=== PATIENT | male | born 1960 | race Caucasian/White ===

== ENCOUNTER 2019-11-03 15:57 | Inpatient (IN) | payer OTHER ==
[~2019-11-03] VITALS: Ht 170.2 cm; Wt 114.2 kg
[2019-11-03] VITALS (10 sets, daily range): BP systolic 131–221; BP diastolic 75–138
[2019-11-03 16:22] LABS: ABG HCO3 14.9 MEQ/L (22.0-26.0); ABG O2 SATURATION 93.2 % (95.0-99.0); ABG PARTIAL PRESSURE CO2 34.2 mmHg (35.0-45.0); ABG PARTIAL PRESSURE O2 74.9 mmHg (75.0-100.0); ABG pH (ARTERIAL) 7.258 UNITS (7.350-7.450)
[2019-11-03] MEDS ORDERED: ISOVUE-370 76% 100ML VIAL As Ordered ONE (16:23)
[2019-11-03 16:28] LABS: HEMATOCRIT 48.2 % (42.0-52.0); HEMOGLOBIN 16.1 g/dl (13.5-17.5); MEAN CORPUSCULAR HEMOGLOBIN 31.9 pg (27.0-33.0); MEAN CORPUSCULAR HGB CONC 33.4 g/dl (32.0-36.5); MEAN CORPUSCULAR VOLUME 95.6 fl (80.0-96.0); PLATELET COUNT, AUTOMATED 242 10^3/uL (150-450); RED BLOOD COUNT 5.04 10^6/uL (4.30-6.10); WHITE BLOOD COUNT 14.3 10^3/uL (4.0-10.0)
--- NOTE | 2019-11-03 16:32 | REPVR ---
PROCEDURE INFORMATION: Exam: XR Chest, 1 View Exam date and time: 11/03/2019 4:02 PM Age: 59 years old Clinical indication: Shortness of breath; Additional info: Chest pain, distress TECHNIQUE: Imaging protocol: XR of the chest Views: 1 view. COMPARISON: No relevant prior studies available. FINDINGS: Tubes, catheters and devices: External monitoring devices present. Lungs: Unremarkable. No consolidation. Pleural space: Unremarkable. No pleural effusion. No pneumothorax. Heart/Mediastinum: The cardiac silhouette is enlarged Bones/joints: Unremarkable. Other findings: The patient is rotated to the right. IMPRESSION: Moderate enlargement of cardiac silhouette Electronically signed by: Swapna Blair On 11/03/2019 16:32:34 PM
[2019-11-03 16:38] LABS: INR 1.21; PROTHROMBIN TIME 15.6 SECONDS (11.8-14.0)
[2019-11-03 16:39] LABS: PARTIAL THROMBOPLASTIN TIME 26.4 SECONDS (25.0-38.4)
--- NOTE | 2019-11-03 17:14 | REPVR ---
PROCEDURE INFORMATION: Exam: CT Angiography Chest With Contrast Exam date and time: 11/03/2019 4:16 PM Age: 59 years old Clinical indication: Shortness of breath; Additional info: Severe sudden SOB TECHNIQUE: Imaging protocol: Computed tomographic angiography of the chest with intravenous contrast. 3D rendering (Not supervised by radiologist): MIP and/or 3D reconstructed images were created by the technologist. Radiation optimization: All CT scans at this facility use at least one of these dose optimization techniques: automated exposure control; mA and/or kV adjustment per patient size (includes targeted exams where dose is matched to clinical indication); or iterative reconstruction. Contrast material: ISOVUE 370; Contrast volume: 75 ml; Contrast route: INTRAVENOUS (IV); COMPARISON: CR PORTABLE CHEST X-RAY 11/03/2019 4:12 PM FINDINGS: Pulmonary arteries: Saddle embolus noted within the left and right pulmonary artery. Nonocclusive thrombus noted in a 2nd and 3rd generation branch of the left pulmonary artery serving the left upper lobe. Clot noted within the left pulmonary artery extending into 1st, 2nd 3rd and 4th generation branches of the left pulmonary artery serving the left lower lobe and to a lesser extent left upper lobe. Large clot noted within the main right pulmonary artery extending into 1st 2nd and 3rd generation branches serving the upper lobe and lower lobe. Aorta: Unremarkable. No aortic aneurysm. No aortic dissection. Veins: RV LV ratio = 1.4 there is reflux of contrast into the intrahepatic IVC. Lungs: Unremarkable. No consolidation. No masses. Pleural space: Unremarkable. No pneumothorax. No pleural effusion. Heart: Moderate cardiomegaly.. No pericardial effusion. Lymph nodes: Unremarkable. No enlarged lymph nodes. Bones/joints: Unremarkable. No acute fracture. Soft tissues: Unremarkable. IMPRESSION: 1. Acute pulmonary embolism. There is large clot burden noted bilaterally.THIS REPORT CONTAINS FINDINGS THAT MAY BE CRITICAL TO PATIENT CARE. The findings were verbally communicated via telephone conference with RICKEY MCGARRY at 5:13 PM EDT on 11/03/2019. The findings were acknowledged and understood. 2. Evidence of right ventricular dysfunction. 3. Moderate cardiomegaly. Electronically signed by: Swapna Blair On 11/03/2019 17:14:14 PM
[2019-11-03] MEDS ORDERED: HEPARIN DRIP 25,000 UNITS in IV 1 EA IV SCH (17:24)
[2019-11-03 17:27] LABS: EOSINOPHILS 1 % (0-3); LYMPHOCYTES 28 % (16-44); METAMYELOCYTES 1 % (0-0); MONOCYTES 6 % (0-5); NEUTROPHILS 63 % (28-66); PLATELET ESTIMATE NORMAL (NORMAL)
[2019-11-03] MEDS ORDERED: HEPARIN SOD (PORCINE) 5000UNITS/ML 1ML VIAL/SYRINGE IV ONE (17:30)
--- NOTE | 2019-11-03 17:39 | REPVR ---
PROCEDURE INFORMATION: Exam: US Duplex Lower Extremity Veins, Bilateral Exam date and time: 11/03/2019 5:26 PM Age: 59 years old Clinical indication: Condition or disease; Other: Pe TECHNIQUE: Imaging protocol: Real-time duplex ultrasound of the extremities with 2-D jain scale, color Doppler flow and spectral waveform analysis with image documentation. Complete exam focused on the bilateral lower extremity veins. COMPARISON: No relevant prior studies available. FINDINGS: Right deep veins: Nonocclusive thrombus noted within the distal right popliteal vein which is noncompressible. There is normal compression of the right common femoral vein, femoro saphenous junction and femoral vein. Blood flow demonstrated on color Doppler examination. Right superficial veins: Saphenofemoral junction is patent without thrombus. Left deep veins: Unremarkable. The common femoral, femoral, proximal profunda femoral and popliteal veins are patent without thrombus. Normal Doppler waveforms. Normal compressibility and/or augmentation response. Left superficial veins: Saphenofemoral junction is patent without thrombus. Soft tissues: Unremarkable. IMPRESSION: 1. Deep vein thrombosis within the right popliteal vein. 2. Normal venous Doppler of the left leg. No left leg deep vein thrombosis Electronically signed by: Swapna Blair On 11/03/2019 17:39:33 PM
[2019-11-03 18:17] LABS: ALT/SGPT 40 IU/L (0-32)
[2019-11-03 18:18] LABS: BILIRUBIN,TOTAL 0.9 MG/DL (0.2-1.0); CK-MB VALUE MASS 1.1 NG/ML (<3.6); CPK CREATINE PHOSPHOKINASE 90 U/L (39-308); MB/CK RELATIVE INDEX 1.22 (< OR =4); TOTAL PROTEIN 7.3 GM/DL (6.4-8.2)
[2019-11-03 18:19] LABS: ACETAMINOPHEN LEVEL < 2.0 UG/ML (10.0-30.0); ALBUMIN 3.2 GM/DL (3.2-5.2); LIPASE 53 U/L (73-393); MAGNESIUM LEVEL 2.4 MG/DL (1.8-2.4); NT-PRO BNP 1613 PG/ML (<125); SALICYLATE LEVEL < 1.7 MG/DL (5.0-30.0); TROPONIN I 0.19 NG/ML (< 0.10)
[2019-11-03] MEDS ORDERED: MAALOX 30 ML SUSP *UDC PO PRN (18:30)
[2019-11-03] MEDS ORDERED: MOM 30ML SUSPENSION UDC PO PRN (18:30)
[2019-11-03] MEDS: HEPARIN DRIP 25,000 UNITS in IV 1 EA IV SCH (18:33)
[2019-11-03 18:37] LABS: BILIRUBIN,DIRECT 0.5 MG/DL (0.0-0.2)
[2019-11-03 18:42] LABS: ABG BASE EXCESS -1.4 (-2.0-2.0); ABG HCO3 22.4 MEQ/L (22.0-26.0); ABG O2 SATURATION 96.1 % (95.0-99.0); ABG PARTIAL PRESSURE CO2 35.5 mmHg (35.0-45.0); ABG PARTIAL PRESSURE O2 76.5 mmHg (75.0-100.0); ABG STANDARD HCO3 23.3 MEQ/L (22.0-26.0); ABG TOTAL CO2 23.5 MEQ/L (22.0-29.0); ABG pH (ARTERIAL) 7.418 UNITS (7.350-7.450)
--- NOTE | 2019-11-03 19:04 | HPEPDOC ---
General Date of Admission Nov 03, 2019 at 18:18 Date of Service: Nov 03, 2019 Chief Complaint The patient is a 59-year-old male admitted with a reason for visit of Dvt, Pulmonary Embolism. Source: Patient History of Present Illness 59 year old male with no past medical history presented to ED by ambulance for sudden onset severe shortness of breath at 3 [address] when he was getting ready to go out. On arrival to the ED he was hypoxic to high 80s with 10 l non rebreather, pale and diaphoretic, he was tachycardic to 125. He denied any chest pain, denied any lightheadedness or dizziness. CXR showed possible widened mediastinum so he had CT angio which showed large saddle embolus and also emboli in other pulmonary artery brancehed. He also complained of his right leg swelling for 2 weeks without any pain or redness.. Doppler showed right popliteal DVT. His VVG showed metabolic acidosis. and his sugars were elevated at 249. He was admitted for DVT and Pulmonary embolism. Home Medications No Active Prescriptions or Reported Meds Allergies Coded Allergies: No Known Allergies (Unverified , 11/03/19) Past Medical History Medical History chronic low back pain Surgical History none Family History Significant Family History: Diabetes (mother), Heart disease (mother), Other (luekemia paternal uncle) Social History * Smoker: Denies Alcohol: occationally Drugs: denies A-FIB/CHADSVASC A-FIB History Current/History of A-Fib/PAF?: No Review of Systems Constitutional: Denies: Chills, Fever, Night Sweats Eyes: Denies: Pain, Vision change ENT: Denies: Head Aches, Ear Pain, Dysphagia Skin: Denies: Rash, Lesions, Breakdown Pulmonary: Reports: Dyspnea Cardiovascular: Denies: Chest Pain, Palpitations, Orthopnea, Paroxysmal Noc. Dyspnea, Lt Headedness Gastrointestinal: Denies: Nausea, Vomiting, Abdominal Pain, Diarrhea Genitourinary: Denies: Dysuria, Frequency, Incontinence, Retention Hematologic: Denies: Bruising, Bleeding Excessively Musculoskeletal: Reports: Back Pain Physical Examination General Exam: Positive: Alert, Cooperative, No Acute Distress Eye Exam: Positive: PERRLA, Conjunctiva & lids normal, EOMI; Negative: Sclera icteric ENT Exam: Positive: Atraumatic, Mucous membr. moist/pink, Pharynx Normal Neck Exam: Positive: Supple; Negative: JVD, thyromegaly Chest Exam: Positive: Normal air movement, Wheezing, Other (basal crackles) Heart Exam: Positive: Tachycardic, Regular Rhythm, Normal S1, Normal S2; Negative: Murmurs, Rubs Telemetry: Positive: Sinus, Tachycardia Abdomen Exam: Positive: Normal bowel sounds, Soft, Other (obese); Negative: Tenderness Extremity Exam: Positive: Edema (right leg) Skin Exam: Positive: Nl turgor and temperature; Negative: Breakdown, Lesion Neuro Exam: Positive: Normal Speech, Strength at 5/5 X4 ext, Normal Tone, Cranial Nerves 3-12 NL, Reflexes 2+ Vital Signs Vital Signs Date Time Temp Pulse Resp B/P (MAP) Pulse Ox O2 Delivery O2 Flow Rate FiO2 11/03/19 16:42 Non-Rebreather 15.0 11/03/19 16:15 97.5 113 25 134/100 (111) 95 100 Laboratory Data Labs 24H Laboratory Tests 2 11/03/19 16:06: Neutrophils (%) (Auto) , Nucleated Red Blood Cells % (auto) 0.0, Neutrophils 63, Band Neutrophils 1, Lymphocytes (Manual) 28, Monocytes (Manual) 6H, Eosinophils (Manual) 1, Metamyelocytes 1H, Platelet Estimate NORMAL, Prothrombin Time 15.6H, Prothromb Time International Ratio 1.21, Activated Partial Thromboplast Time 26.4, POC Troponin I (Misc) 0.03 11/03/19 16:10: Blood Gas Bicarbonate Standard 16.0L, Arterial Blood pH 7.258L, Arterial Blood Partial Pressure CO2 34.2L, Arterial Blood Partial Pressure O2 74.9L, Arterial Blood Total CO2 16.0L, Arterial Blood HCO3 14.9L, Arterial Blood Base Excess - 11.0L, Arterial Blood Oxygen Saturation 93.2L 11/03/19 16:20: POC Glucose (Misc Panel) 249H, POC Sodium (Misc Panel) 139, POC Potassium (Misc Panel) 3.6, POC Chloride (Misc Panel) 103, POC Total CO2 (Misc Panel) 20.0L, POC Blood Urea Nitrogen (Misc Panel 6L, POC Ionized Calcium (Misc Panel) 4.2L, POC Creatinine (Misc Panel) 1.2, POC Hematocrit (Misc Panel) 52.0H 11/03/19 17:17: Magnesium Level 2.4, Total Bilirubin 0.9, Direct Bilirubin 0.5H, Aspartate Amino Transf (AST/SGOT) 31, Alanine Aminotransferase (ALT/SGPT) 40H, Alkaline Phosphatase 133H, Total Creatine Kinase 90, Creatine Kinase MB 1.1, Creatine Kinase MB Relative Index 1.22, Troponin I 0.19H, QE-Ouy-T-Type Natriuretic Peptide 1613H, Total Protein 7.3, Albumin 3.2, Albumin/Globulin Ratio 0.8, Lipase 53L, Thyroid Stimulating Hormone (TSH) 2.710, Salicylates Level < 1.7L, Acetaminophen Level < 2.0L 11/03/19 18:16: 11/03/19 18:35: Blood Gas Bicarbonate Standard 23.3, Arterial Blood pH 7.418, Arterial Blood Partial Pressure CO2 35.5, Arterial Blood Partial Pressure O2 76.5, Arterial B lood Total CO2 23.5, Arterial Blood HCO3 22.4, Arterial Blood Base Excess -1.4, Arterial Blood Oxygen Saturation 96.1 CBC/BMP Laboratory Tests 11/03/19 16:06 Assessment/Plan 59 year old male with no past medical history presented to ED by ambulance for sudden onset severe shortness of breath at 3 [address] when he was getting ready to go out. On arrival to the ED he was hypoxic to high 80s with 10 l non rebreather, pale and diaphoretic, he was tachycardic to 125. He denied any chest pain, denied any lightheadedness or dizziness. CXR showed possible widened mediastinum so he had CT angio which showed large saddle embolus and also emboli in other pulmonary artery brancehed. He also complained of his right leg swelling for 2 weeks without any pain or redness.. Doppler showed right popliteal DVT. His VVG showed metabolic acidosis. and his sugars were elevated at 249. He was admitted for DVT and Pulmonary embolism. Massive pulmonary embolism will stable vitals. will start on heparin inf hypercoagulable work up sent echo. Acute respiratory failure with hypoxia due to massive PE Right leg DVT unprovoked. Metabolic acidosis on arrival which has now corrected possibly due to hypoxia Possible diabetes will get A1c Lispro as per ss. Obesity complicating care. Plan / VTE VTE Prophylaxis Ordered?: Yes HARINDER MEADE MD Nov 03, 2019 19:04
[2019-11-03] MEDS ORDERED: DEXTROSE 50% 50 ML SYRINGE IV PRN (19:15)
[2019-11-03] MEDS ORDERED: GLUCOSE 4GM CHEW TABLET PO PRN (19:15)
[2019-11-03] MEDS ORDERED: GLUCAGON INJ 1MG VIAL SC PRN (19:15)
[2019-11-03] MEDS ORDERED: hydrALAZINE 20MG/ML 1ML VIAL (J0360 PER 20MG) IV STA (20:13)
[2019-11-03] MEDS: DOCUSATE SODIUM 100 MG CAP PO SCH (20:35)
[2019-11-03] MEDS ORDERED: HumaLOG INSULIN (NovoLOG) PER UNIT SC SCH (21:00)
[2019-11-04] VITALS (10 sets, daily range): BP systolic 142–200; BP diastolic 77–102
[2019-11-04 06:05] LABS: BASO # 0.1 10^3/uL (0.0-0.2); BASO % 0.4 % (0.0-1.0); EOS # 0.1 10^3/uL (0.0-0.5); EOS % 0.7 % (0.0-3.0); HEMATOCRIT 44.2 % (42.0-52.0); HEMOGLOBIN 15.2 g/dl (13.5-17.5); LYMPH # 2.4 10^3/uL (1.5-5.0); LYMPH % 19.1 % (24.0-44.0); MEAN CORPUSCULAR HEMOGLOBIN 32.3 pg (27.0-33.0); MEAN CORPUSCULAR HGB CONC 34.4 g/dl (32.0-36.5); MEAN CORPUSCULAR VOLUME 93.8 fl (80.0-96.0); MONO # 1.1 10^3/uL (0.0-0.8); MONO % 8.7 % (0.0-5.0); NEUTROPHILS # 8.7 10^3/uL (1.5-8.5); NEUTROPHILS % 70.5 % (36.0-66.0); PLATELET COUNT, AUTOMATED 209 10^3/uL (150-450); RED BLOOD COUNT 4.71 10^6/uL (4.30-6.10); WHITE BLOOD COUNT 12.3 10^3/uL (4.0-10.0)
[2019-11-04 06:34] LABS: BLOOD UREA NITROGEN 10 MG/DL (7-18); CALCIUM LEVEL 8.9 MG/DL (8.5-10.1); CARBON DIOXIDE LEVEL 24 MEQ/L (21-32); CHLORIDE LEVEL 109 MEQ/L (98-107); GLOMERULAR FILTRATION RATE > 60.0 (>56); GLUCOSE, FASTING 129 MG/DL (70-100); POTASSIUM SERUM 4.2 MEQ/L (3.5-5.1); SODIUM LEVEL 138 MEQ/L (136-145)
[2019-11-04] MEDS: HEPARIN SOD (PORCINE) 5000UNITS/ML 1ML VIAL/SYRINGE IV PRN ×2 (06:37→18:50)
[2019-11-04] MEDS ORDERED: HumaLOG INSULIN (NovoLOG) PER UNIT SC SCH (07:30)
[2019-11-04] MEDS: DOCUSATE SODIUM 100 MG CAP PO SCH ×3 (08:13→20:10)
[2019-11-04] MEDS: HEPARIN DRIP 25,000 UNITS in IV 1 EA IV SCH ×2 (09:00→21:35)
--- NOTE | 2019-11-04 09:25 | IPNPDOC ---
Text Note Date of Service The patient was seen on 11/04/19. NOTE Subjective: No issues overnight . Denies any SOB, no chest pain, has some cough no phlegm production. On nasal canula 4 liters. Physical Exam: Vitals : as below. General Exam: Positive: Alert, Cooperative, No Acute Distress Eye Exam: Positive: PERRLA, Conjunctiva & lids normal, EOMI; Negative: Sclera icteric ENT Exam: Positive: Atraumatic, Mucous membr. moist/pink, Pharynx Normal Neck Exam: Positive: Supple; Negative: JVD, thyromegaly Chest Exam: Positive: Normal air movement, Wheezing, Other (basal crackles) Heart Exam: Positive: Tachycardic, Regular Rhythm, Normal S1, Normal S2; Negative: Murmurs, Rubs Telemetry: Positive: Sinus, Tachycardia Abdomen Exam: Positive: Normal bowel sounds, Soft, Other (obese); Negative: Tenderness Extremity Exam: Positive: Edema (right leg) Skin Exam: Positive: Nl turgor and temperature; Negative: Breakdown, Lesion Neuro Exam: Positive: Normal Speech, Strength at 5/5 X4 ext, Normal Tone, Cranial Nerves 3-12 NL, Reflexes 2+ Labs and Radiology: reviewed Assessment and plan: 59 year old male with no past medical history presented to ED by ambulance for sudden onset severe shortness of breath at 3 [address] when he was getting ready to go out. On arrival to the ED he was hypoxic to high 80s with 10 l non rebreather, pale and diaphoretic, he was tachycardic to 125. He denied any chest pain, denied any lightheadedness or dizziness. CXR showed possible widened mediastinum so he had CT angio which showed large saddle embolus and also emboli in other pulmonary artery brancehed. He also complained of his right leg swelling for 2 weeks without any pain or redness.. Doppler showed right p opliteal DVT. His VVG showed metabolic acidosis. and his sugars were elevated at 249. He was admitted for DVT and Pulmonary embolism. Massive pulmonary embolism stable vitals. cont heparin inf hypercoagulable work up sent echo. Acute respiratory failure with hypoxia due to massive PE Right leg DVT unprovoked. Metabolic acidosis on arrival possibly due to hypoxia Prediabetes A1c 6.0 dc lispro Obesity complicating care. VS,Maria Fernanda, I+O VS, Fishbone, I+O Laboratory Tests 11/03/19 16:06 11/04/19 05:53 Vital Signs Date Time Temp Pulse Resp B/P (MAP) Pulse Ox O2 Delivery O2 Flow Rate FiO2 11/04/19 08:00 4.0 11/04/19 08:00 98.3 94 20 150/85 (106) 93 Nasal Cannula 11/04/19 04:00 31 I&O- Last 24 Hours up to 6 AM 11/04/19 05:59 Intake Total 260 ml Output Total 450 ml Balance -190 ml HARINDER MEADE MD Nov 04, 2019 09:25
[2019-11-04] MEDS: hydrALAZINE 20MG/ML 1ML VIAL (J0360 PER 20MG) IV PRN (20:11)
[2019-11-04] MEDS: NITROFURANTOIN (MACROBID) 100 MG CAP PO SCH (23:56)
[2019-11-05] VITALS: BP 156/85
[2019-11-05 04:00] VITALS: BP 147/83
[2019-11-05 07:27] LABS: BASO # 0.1 10^3/uL (0.0-0.2); BASO % 0.5 % (0.0-1.0); EOS # 0.2 10^3/uL (0.0-0.5); EOS % 2.3 % (0.0-3.0); HEMATOCRIT 43.7 % (42.0-52.0); HEMOGLOBIN 15.2 g/dl (13.5-17.5); LYMPH # 2.1 10^3/uL (1.5-5.0); LYMPH % 20.7 % (24.0-44.0); MEAN CORPUSCULAR HEMOGLOBIN 32.3 pg (27.0-33.0); MEAN CORPUSCULAR HGB CONC 34.8 g/dl (32.0-36.5); MONO # 0.9 10^3/uL (0.0-0.8); MONO % 8.9 % (0.0-5.0); NEUTROPHILS # 6.9 10^3/uL (1.5-8.5); NEUTROPHILS % 67.1 % (36.0-66.0); PLATELET COUNT, AUTOMATED 217 10^3/uL (150-450); WHITE BLOOD COUNT 10.3 10^3/uL (4.0-10.0)
[2019-11-05] MEDS: HEPARIN SOD (PORCINE) 5000UNITS/ML 1ML VIAL/SYRINGE IV PRN (07:56)
[2019-11-05 08:00] VITALS: BP 154/91
[2019-11-05] MEDS: SENNA 8.6 MG TAB (SENOKOT) PO SCH ×2 (08:01→20:36)
[2019-11-05] MEDS: DOCUSATE SODIUM 100 MG CAP PO SCH ×2 (08:01→20:36)
[2019-11-05] MEDS: NITROFURANTOIN (MACROBID) 100 MG CAP PO SCH ×2 (08:01→20:36)
[2019-11-05] MEDS: amLODIPine 10 MG TAB PO SCH (08:02)
[2019-11-05 08:04] LABS: BLOOD UREA NITROGEN 11 MG/DL (7-18); CALCIUM LEVEL 8.4 MG/DL (8.5-10.1); CARBON DIOXIDE LEVEL 23 MEQ/L (21-32); CHLORIDE LEVEL 110 MEQ/L (98-107); CREATININE FOR GFR 0.95 MG/DL (0.70-1.30); GLOMERULAR FILTRATION RATE > 60.0 (>56); GLUCOSE, FASTING 123 MG/DL (70-100); POTASSIUM SERUM 3.9 MEQ/L (3.5-5.1); SODIUM LEVEL 142 MEQ/L (136-145)
--- NOTE | 2019-11-05 09:08 | IPNPDOC ---
Text Note Date of Service The patient was seen on 11/05/19. NOTE Subjective: No issues overnight . Denies any SOB, no chest pain, has some cough no phlegm production. Off oxygen since yesterday. Physical Exam: Vitals : as below. General Exam: Positive: Alert, Cooperative, No Acute Distress Eye Exam: Positive: PERRLA, Conjunctiva & lids normal, EOMI; Negative: Sclera icteric ENT Exam: Positive: Atraumatic, Mucous membr. moist/pink, Pharynx Normal Neck Exam: Positive: Supple; Negative: JVD, thyromegaly Chest Exam: Positive: Normal air movement, Wheezing, Other (basal crackles) Heart Exam: Positive: Tachycardic, Regular Rhythm, Normal S1, Normal S2; Negative: Murmurs, Rubs Telemetry: Positive: Sinus, Tachycardia Abdomen Exam: Positive: Normal bowel sounds, Soft, Other (obese); Negative: Tenderness Extremity Exam: Positive: Edema (right leg) Skin Exam: Positive: Nl turgor and temperature; Negative: Breakdown, Lesion Neuro Exam: Positive: Normal Speech, Strength at 5/5 X4 ext, Normal Tone, Cranial Nerves 3-12 NL, Reflexes 2+ Labs and Radiology: reviewed Assessment and plan: 59 year old male with no past medical history presented to ED by ambulance for sudden onset severe shortness of breath at 3 [address] when he was getting ready to go out. On arrival to the ED he was hypoxic to high 80s with 10 l non rebreather, pale and diaphoretic, he was tachycardic to 125. He denied any chest pain, denied any lightheadedness or dizziness. CXR showed possible widened mediastinum so he had CT angio which showed large saddle embolus and also emboli in other pulmonary artery brancehed. He also complained of his right leg swelling for 2 weeks without any pain or redness.. Doppler showed right popliteal DVT. His VVG showed metabolic acidosis. and his sugars were elevated at 249. He was admitted for DVT and Pulmonary embolism. Massive pulmonary embolism stable vitals. cont heparin inf today. [place] start on lovenox tonight an coumadin. hypercoagulable work up sent echo done. Acute respiratory failure with hypoxia due to massive PE Right leg DVT unprovoked. Metabolic acidosis on arrival possibly due to hypoxia Prediabetes A1c 6.0 dc lispro Obesity complicating care. VS,Fishbone, I+O VS, Fishbone, I+O Laboratory Tests 11/05/19 07:17 Vital Signs Date Time Temp Pulse Resp B/P (MAP) Pulse Ox O2 Delivery O2 Flow Rate FiO2 11/05/19 08:02 83 154/91 11/05/19 08:00 97.4 20 94 Room Air 11/04/19 12:00 2.0 11/04/19 04:00 31 I&O- Last 24 Hours up to 6 AM 11/05/19 05:59 Intake Total 1638 ml Output Total 1375 ml Balance 263 ml HARINDER MEADE MD Nov 05, 2019 09:08
[2019-11-05] MEDS: HEPARIN DRIP 25,000 UNITS in IV 1 EA IV SCH ×2 (10:34→20:35)
[2019-11-05 11:10] VITALS: BP 160/90
[2019-11-05 16:00] VITALS: BP 138/90
[2019-11-05 20:00] VITALS: BP 148/90
[2019-11-05 20:21] LABS: INR 1.05; PROTHROMBIN TIME 13.9 SECONDS (11.8-14.0)
[2019-11-05 20:22] LABS: PARTIAL THROMBOPLASTIN TIME 68.4 SECONDS (25.0-38.4)
[2019-11-06] VITALS (7 sets, daily range): BP systolic 127–182; BP diastolic 70–96
[2019-11-06 06:47] LABS: BASO # 0.1 10^3/uL (0.0-0.2); BASO % 0.7 % (0.0-1.0); EOS # 0.4 10^3/uL (0.0-0.5); HEMATOCRIT 44.9 % (42.0-52.0); HEMOGLOBIN 15.3 g/dl (13.5-17.5); LYMPH # 2.2 10^3/uL (1.5-5.0); LYMPH % 23.7 % (24.0-44.0); MEAN CORPUSCULAR HEMOGLOBIN 32.2 pg (27.0-33.0); MEAN CORPUSCULAR HGB CONC 34.1 g/dl (32.0-36.5); MEAN CORPUSCULAR VOLUME 94.5 fl (80.0-96.0); MONO # 0.9 10^3/uL (0.0-0.8); MONO % 9.5 % (0.0-5.0); NEUTROPHILS # 5.6 10^3/uL (1.5-8.5); NEUTROPHILS % 61.2 % (36.0-66.0); PLATELET COUNT, AUTOMATED 216 10^3/uL (150-450); RED BLOOD COUNT 4.75 10^6/uL (4.30-6.10); WHITE BLOOD COUNT 9.2 10^3/uL (4.0-10.0)
[2019-11-06 07:03] LABS: BLOOD UREA NITROGEN 14 MG/DL (7-18); CALCIUM LEVEL 8.5 MG/DL (8.5-10.1); CARBON DIOXIDE LEVEL 23 MEQ/L (21-32); CHLORIDE LEVEL 110 MEQ/L (98-107); CREATININE FOR GFR 1.17 MG/DL (0.70-1.30); GLOMERULAR FILTRATION RATE > 60.0 (>56); GLUCOSE, FASTING 116 MG/DL (70-100); POTASSIUM SERUM 3.9 MEQ/L (3.5-5.1); SODIUM LEVEL 141 MEQ/L (136-145)
[2019-11-06] MEDS: SENNA 8.6 MG TAB (SENOKOT) PO SCH ×2 (07:30→20:15)
[2019-11-06] MEDS: DOCUSATE SODIUM 100 MG CAP PO SCH ×2 (07:30→20:15)
[2019-11-06] MEDS: amLODIPine 10 MG TAB PO SCH (08:35)
[2019-11-06] MEDS: NITROFURANTOIN (MACROBID) 100 MG CAP PO SCH ×2 (09:02→20:15)
[2019-11-06] MEDS: ENOXAPARIN 120MG/0.8ML SYRINGE (J1650 PER 10MG) SC SCH ×2 (09:03→20:15)
[2019-11-06] MEDS ORDERED: LOVE0.01 SC (10:35)
--- NOTE | 2019-11-06 10:41 | IPNPDOC ---
Text Note Date of Service The patient was seen on 11/06/19. NOTE Subjective: No issues overnight . Denies any SOB, no chest pain, has some cough no phlegm production. Off oxygen ambulating well. Physical Exam: Vitals : as below. General Exam: Positive: Alert, Cooperative, No Acute Distress Eye Exam: Positive: PERRLA, Conjunctiva & lids normal, EOMI; Negative: Sclera icteric ENT Exam: Positive: Atraumatic, Mucous membr. moist/pink, Pharynx Normal Neck Exam: Positive: Supple; Negative: JVD, thyromegaly Chest Exam: Positive: Normal air movement, Wheezing, Other (basal crackles) Heart Exam: Positive: Tachycardic, Regular Rhythm, Normal S1, Normal S2; Negative: Murmurs, Rubs Telemetry: Positive: Sinus, Tachycardia Abdomen Exam: Positive: Normal bowel sounds, Soft, Other (obese); Negative: Tenderness Extremity Exam: Positive: Edema (right leg) Skin Exam: Positive: Nl turgor and temperature; Negative: Breakdown, Lesion Neuro Exam: Positive: Normal Speech, Strength at 5/5 X4 ext, Normal Tone, Cranial Nerves 3-12 NL, Reflexes 2+ Labs and Radiology: reviewed Assessment and plan: 59 year old male with no past medical history presented to ED by ambulance for sudden onset severe shortness of breath at 3 [address] when he was getting ready to go out. On arrival to the ED he was hypoxic to high 80s with 10 l non rebreather, pale and diaphoretic, he was tachycardic to 125. He denied any chest pain, denied any lightheadedness or dizziness. CXR showed possible widened mediastinum so he had CT angio which showed large saddle embolus and also emboli in other pulmonary artery brancehed. He also complained of his right leg swelling for 2 weeks without any pain or redness.. Doppler showed right popliteal DVT. His VVG showed metabolic acidosis. and his sugars were elevated at 249. He was admitted for DVT and Pulmonary embolism. Massive pulmonary embolism stable vitals. started on Lovenox and coumadin. hypercoagulable work up sent echo done. Acute respiratory failure with hypoxia due to massive PE Now resolved. 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 will give lasix iv start on lisinopril and coreg Hypertension new diagnosis with CHF starting on lisinopril and coreg, amlodipine. Right leg DVT unprovoked. Metabolic acidosis on arrival possibly due to hypoxia Prediabetes A1c 6.0 dc lispro Morbid Obesity complicating care. VS,Fishbone, I+O VS, Fishbone, I+O Laboratory Tests 11/06/19 06:04 Vital Signs Date Time Temp Pulse Resp B/P (MAP) Pulse Ox O2 Delivery O2 Flow Rate FiO2 11/06/19 08:35 174/70 11/06/19 04:00 97.2 71 16 94 Room Air 11/04/19 12:00 2.0 11/04/19 04:00 31 I&O- Last 24 Hours up to 6 AM 11/06/19 05:59 Intake Total 1129 ml Output Total 525 ml Balance 604 ml HARINDER MEADE MD Nov 06, 2019 10:41
[2019-11-06] MEDS: hydrALAZINE 20MG/ML 1ML VIAL (J0360 PER 20MG) IV PRN (11:35)
--- NOTE | 2019-11-06 15:00 | ECHO ---
DATE OF PROCEDURE: 11/04/2019 Age: 59 Gender: Male Height: 67 inches Weight: 260 pounds Body surface area: 2.26 m2 PATIENT LOCATION: Inpatient intensive care unit (ICU), Room 3207. REFERRING PHYSICIAN: Dr. Rosa Sanchez. INDICATION: Deep vein thrombosis, pulmonary embolism, dyspnea. 2D MEASUREMENTS: RV 4.0 cm LV 5.1 cm Septum 1.3 cm Posterior wall 1.3 cm Aortic root 3.9 cm LA 3.8 cm LVEF 45% ? DOPPLER MEASUREMENTS AV 1.0 m/sec LVOT Could not be measured. LVOT diameter 2.3 cm MV E 41, A 96, E/A ratio 0.4 Early mitral deceleration time 130 msec E prime medial 5.6, A prime medial 7.7, E prime lateral 9.5 Average E/e prime ratio 5.4/PCWP 8.6 mmHg IVC 2.2 cm COMMENTS: Normal sinus rhythm. Technically very difficult study in light of the patients body habitus. Little diagnostic information was still available. We attempted to perform M-mode, two-dimensional echocardiography along with pulse, continuous wave, color flow, and tissue Doppler studies, but this proved to be extremely difficult. Normal left ventricular size with mild symmetrical hypertrophy. There appeared to be mild global hypokinesis. Left atrial size upper limits of normal with evidence of grade 1 LV diastolic dysfunction, but currently normal estimated mean left atrial pressure. Right heart chamber sizes were normal. We could not get a clear spectral envelope of his tricuspid valve to estimate his right ventricular systolic pressure. His pulmonary trunk was not visualized to allow us to estimate his pulmonary arterial pressure. Normal IVC size and collapse against right heart failure. Borderline dilated aortic root. Ascending aorta measured 3.7 cm. Valvular structures were not well visualized, but did not appear strikingly abnormal and Doppler flow signals failed to demonstrate any significant valvular abnormality. We could not discern any intracardiac mass. There was a small anterior and posterior pericardial effusion measuring approximately 4-5 mm, but no evidence of cardiac chamber compression. If further information was deemed necessary, the only this would be obtained with echocardiography would be a transesophageal study. [facility]ENTERJolanta
[2019-11-06] MEDS ORDERED: WARFARIN SOD 5MG TAB PO SCH (17:00)
[2019-11-06] MEDS ORDERED: FUROSEMIDE 40MG/4ML VIAL (J1940) IV ONE (17:15)
[2019-11-06] MEDS: CARVedilol 6.25 MG TAB PO SCH (20:14)
[2019-11-06] MEDS ORDERED: lisinopriL 5 MG TAB PO SCH (21:00)
[2019-11-07] VITALS: BP 159/92
[2019-11-07 02:07] LABS: ANTI THROMBIN 3 ANTIGEN IMMUNO 91 % (72-124); ANTI THROMBIN 3 FUNCT ACTIVITY 100 % (75-135); PROTEIN C FUNCTIONAL ACTIVITY 81 % (73-180); PROTEIN S FUNCTIONAL ACTIVITY 92 % (63-140)
[2019-11-07 04:00] VITALS: BP 142/87
[2019-11-07 06:37] LABS: BASO # 0.1 10^3/uL (0.0-0.2); BASO % 0.6 % (0.0-1.0); EOS # 0.5 10^3/uL (0.0-0.5); EOS % 4.8 % (0.0-3.0); HEMOGLOBIN 15.7 g/dl (13.5-17.5); LYMPH # 1.9 10^3/uL (1.5-5.0); LYMPH % 19.9 % (24.0-44.0); MEAN CORPUSCULAR HEMOGLOBIN 32.6 pg (27.0-33.0); MEAN CORPUSCULAR HGB CONC 34.9 g/dl (32.0-36.5); MEAN CORPUSCULAR VOLUME 93.6 fl (80.0-96.0); MONO # 0.9 10^3/uL (0.0-0.8); MONO % 9.6 % (0.0-5.0); NEUTROPHILS # 6.1 10^3/uL (1.5-8.5); NEUTROPHILS % 64.5 % (36.0-66.0); PLATELET COUNT, AUTOMATED 224 10^3/uL (150-450); RED BLOOD COUNT 4.81 10^6/uL (4.30-6.10); WHITE BLOOD COUNT 9.5 10^3/uL (4.0-10.0)
[2019-11-07 06:47] LABS: INR 1.14; PROTHROMBIN TIME 14.8 SECONDS (11.8-14.0)
[2019-11-07 06:48] LABS: PARTIAL THROMBOPLASTIN TIME 37.3 SECONDS (25.0-38.4)
[2019-11-07 06:59] LABS: BLOOD UREA NITROGEN 14 MG/DL (7-18); CALCIUM LEVEL 8.7 MG/DL (8.5-10.1); CARBON DIOXIDE LEVEL 25 MEQ/L (21-32); CHLORIDE LEVEL 108 MEQ/L (98-107); CREATININE FOR GFR 1.06 MG/DL (0.70-1.30); GLOMERULAR FILTRATION RATE > 60.0 (>56); GLUCOSE, FASTING 111 MG/DL (70-100); POTASSIUM SERUM 3.9 MEQ/L (3.5-5.1); SODIUM LEVEL 140 MEQ/L (136-145)
[2019-11-07 07:46] VITALS: BP 134/71
[2019-11-07] MEDS: SENNA 8.6 MG TAB (SENOKOT) PO SCH (07:46)
[2019-11-07] MEDS: CARVedilol 6.25 MG TAB PO SCH (07:46)
[2019-11-07] MEDS: amLODIPine 10 MG TAB PO SCH (07:46)
[2019-11-07] MEDS: DOCUSATE SODIUM 100 MG CAP PO SCH (07:47)
[2019-11-07] MEDS: NITROFURANTOIN (MACROBID) 100 MG CAP PO SCH (07:47)
[2019-11-07] MEDS: ENOXAPARIN 120MG/0.8ML SYRINGE (J1650 PER 10MG) SC SCH (07:48)
[2019-11-07 08:00] VITALS: BP 131/75
[2019-11-07] MEDS ORDERED: FUROSEMIDE 40MG/4ML VIAL (J1940) IV SCH (09:00)
[2019-11-07] MEDS ORDERED: LISI-542 PO (11:34)
[2019-11-07] MEDS ORDERED: CARV6.25 PO (11:34)
[2019-11-07] MEDS ORDERED: JANT5TAB PO (11:34)
[2019-11-07] MEDS ORDERED: DOCU100C16 PO (11:34)
[2019-11-07] MEDS ORDERED: NITR100C2 PO (11:34)
[2019-11-07] MEDS ORDERED: AMLO1TAB25 PO (11:34)
[2019-11-07] MEDS ORDERED: LASI40TA9 PO (11:37)
[2019-11-07 12:00] VITALS: BP 137/74
--- NOTE | 2019-11-07 12:19 | DS.PDOC ---
Discharge Summary General Date of Admission Nov 03, 2019 at 18:18 Date of Discharge 11/08/19 Primary Care Physician: Jr London Collins Attending Physician: MARGARITA STEWART MD Specialist/Consultants Involve: JOLANTA GARCIA MD, [facility] Discharge Summary PROCEDURES PERFORMED DURING STAY: [None]. ADMITTING DIAGNOSES: 1. Submassive Saddle Pulmonary Embolism 2. Acute hypoxic respiratory failure 3. RLE DVT 4. Hyperglycemia 5. Obesity. DISCHARGE DIAGNOSES: 1. Submassive Saddle Pulmonary Embolism 2. Acute hypoxic respiratory failure 3. RLE DVT 4. Hyperglycemia 5. Obesity 6. Systolic CHF COMPLICATIONS/CHIEF COMPLAINT: Dvt, Pulmonary Embolism. HISTORY OF PRESENT ILLNESS: 59 year old male with no past medical history presented to ED by ambulance for sudden onset severe shortness of breath at 3 pm when he was getting ready to go out. On arrival to the ED he was hypoxic to high 80s with 10 l non rebreather, pale and diaphoretic, he was tachycardic to 125. He denied any chest pain, denied any lightheadedness or dizziness. CXR s howed possible widened mediastinum so he had CT angio which showed large saddle embolus and also emboli in other pulmonary artery branches. He also complained of his right leg swelling for 2 weeks without any pain or redness.. Doppler showed right popliteal DVT. His VBG showed metabolic acidosis. and his sugars were elevated at 249. He was admitted for DVT and Pulmonary embolism. HOSPITAL COURSE: Patient was given heparin infusion for 2 days, and transitioned to therapeutic lovenox with bridging to warfarin (1st dose 10 mg, DC with 5 mg qhs). Patient did not exhibit hypotension throughout the admission. No thrombolysis was given. Hypercoagulable labs were sent, pending results for antiphospholipid syndrome. Protein C/S, antithrombin III ag;activity wnl. Pending Factor V leiden, [place] anticoagulant. Spoke to Dr. Garcia, patient will follow up in clinic for hypercoagulable workup. Echocardiogram showed global hypokinesis with an EF 45%. He was diagnosed with acute systolic CHF, BNP 1600. ACEi, BB, lasix were started. Patient was euvolemic on exam on day of discharge. Was aware of discharge plan, and need for INR monitoring in 2-3 days. SpO2 97% on RA, HR 68, BP 136/71 on day of discharge. He was provided complete training on injection of lovenox. He verbalized understanding of importance of PCP follow up for INR monitoring. DISCHARGE MEDICATIONS: Please see below. ALLERGIES: Please see below. PHYSICAL EXAMINATION ON DISCHARGE: VITAL SIGNS: Please see below. General: NAD, comfortable HEENT: PERRLA, EOMI, sclerae clear Neck: supple, normal ROM, no JVD Resp: lungs CTAB, no wheeze, no rales, no crackles CVS: RRR, normal S1, S2, no murmurs Abdo: soft, no masses, no hepatosplenomegaly, BS+, no rebound tenderness Extremities: no edema, pulses 2+MSK: no joint deformities, normal ROM Neuro: no focal neuro deficits, moving all 4 extremities Psych: calm, cooperative, AAO x 3 LABORATORY DATA: Please see below. IMAGING: CXR: IMPRESSION: Moderate enlargement of cardiac silhouette CTA: Pulmonary arteries: Saddle embolus noted within the left and right pulmonary artery. Nonocclusive thrombus noted in a 2nd and 3rd generation branch of the left pulmonary artery serving the left upper lobe. Clot noted within the left pulmonary artery extending into 1st, 2nd 3rd and 4th generation branches of the left pulmonary artery serving the left lower lobe and to a lesser extent left upper lobe. Large clot noted within the main right pulmonary artery extending into 1st 2nd and 3rd generation branches serving the upper lobe and lower lobe. Aorta: Unremarkable. No aortic aneurysm. No aortic dissection. Veins: RV LV ratio = 1.4 there is reflux of contrast into the intrahepatic IVC. Evidence of right ventricular dysfunction. Moderate cardiomegaly BLE Dupplex: IMPRESSION: 1. Deep vein thrombosis within the right popliteal vein. 2. Normal venous Doppler of the left leg. No left leg deep vein thrombosis PROGNOSIS: Good ACTIVITY: As tolerated DIET: 2G Sodium restriction DISCHARGE PLAN: Will need to follow up with PCP in 2-3 days, and with hematology in 1-[address] Garcia aware. DISPOSITION: DC home DISCHARGE INSTRUCTIONS: 1.PLEASE FOLLOW UP WITH YOUR PRIMARY CARE DOCTOR WITHIN 3DAYS 2.PLEASE FOLLOW UP WITH HEMATOLOGY (DR. GARCIA) WITHIN 1-2 WEEKS 3.PLEASE TAKE WARFARIN 5 MG EVERY EVENING, AND CHECK YOUR INR WITH YOUR PCP WITHIN 2-3 DAYS, YOUR DOSE MAY BE ADJUSTED BASED ON THIS RESULT. 4.PLEASE CONTINUE TO INJECT LOVENOX FOR THE NEXT 7 DAYS OR UNTIL YOU CHECK YOUR INR 5. YOU HAVE BEEN DIAGNOSED WITH HEART FAILURE, PLEASE CONTINUE TO TAKE NEW MEDICATIONS: LISINPRIL, CARVEDILOL, LASIX, PRESCRIBED. PLEASE CONSUME NO MORE THAN 2G OF SALT PER DAY. 6. IF YOU DEVELOP CHEST PAIN, SHORTNESS OF BREATH, FEVERS, CHILLS, BLEEDING OR OTHERWISE WORSENING FO YOUR SYMPTOMS, PLASE CALL 911 OR RETURN TO THE EMERGENCY DEPARTMENT. ITEMS TO FOLLOWUP ON ON OUTPATIENT: 1. check INR DISCHARGE CONDITION: Stable. TIME SPENT ON DISCHARGE: Greater than 30 minutes. Vital Signs/I&Os Vital Signs Date Time Temp Pulse Resp B/P (MAP) Pulse Ox O2 Delivery O2 Flow Rate FiO2 11/07/19 12:00 97.9 75 20 137/74 (95) 96 Room Air 11/04/19 12:00 2.0 11/04/19 04:00 31 I&O- Last 24 Hours up to 6 AM 11/07/19 05:59 Intake Total 1704 ml Output Total 3050 ml Balance -1346 ml Laboratory Data Labs 24H Laboratory Tests 2 11/07/19 06:14: Immature Granulocyte % (Auto) 0.6, Neutrophils (%) (Auto) 64.5, Lymphocytes (%) (Auto) 19.9L, Monocytes (%) (Auto) 9.6H, Eosinophils (%) (Auto) 4.8H, Basophils (%) (Auto) 0.6, Neutrophils # (Auto) 6.1, Lymphocytes # (Auto) 1.9, Monocytes # (Auto) 0.9H, Eosinophils # (Auto) 0.5, Basophils # (Auto) 0.1, Nucleated Red Blood Cells % (auto) 0.0, Prothrombin Time 14.8H, Prothromb Time International Ratio 1.14, Activated Partial Thromboplast Time 37.3, Anion Gap 7L, Glomerular Filtration Rate > 60.0, Calcium Level 8.7 CBC/BMP Laboratory Tests 11/07/19 06:14 Microbiology Microbiology 11/04/19 Urine Culture - Final, Complete Escherichia Coli Discharge Medications Scheduled Amlodipine Besylate (Amlodipine Besylate) 10 Mg Tablet, 10 MG PO DAILY Carvedilol (Carvedilol) 6.25 Mg Tablet, 6.25 MG PO BID Enoxaparin Sodium (Lovenox) 120 Mg/0.8 Ml Syringe, 120 MG SC Q12H Furosemide (Lasix) 40 Mg Tablet, 40 MG PO BID Lisinopril (Lisinopril) 5 Mg Tablet, 5 MG PO QHS Nitrofurantoin Monohyd/M-Cryst (Nitrofurantoin [place]-Mcr 100 mg) 100 Mg Capsule, 100 MG PO BID Warfarin Sodium (Jantoven) 5 Mg Tablet, 5 MG PO DAILY@1700 Scheduled PRN Docusate Sodium (Docusate Sodium) 100 Mg Capsule, 100 MG PO BID PRN for BOWEL CARE/CONSTIPATION Allergies Coded Allergies: No Known Allergies (Unverified , 11/03/19) MARGARITA STEWART MD Nov 07, 2019 12:19
--- NOTE | 2019-11-10 12:30 | ECGEPIP ---
[facility] - ED Test Date: 2019-11-03 Pat Name: PATSY AHUMADA JR Department: Room: - Gender: Male Chipper: : 1960 Requested By: JUAN MANUEL SALVADOR Order Number: [id number] Reading MD: Juan Manuel Huynh Measurements Intervals [place] Rate: 118 P: 50 MI: 180 QRS: -50 QRSD: 160 T: -15 QT: 412 QTc: 579 Interpretive Statements SINUS TACHYCARDIA INTRAVENTRICULAR CONDUCTION DELAY BASELINE ARTIFACT INFERIOR Q WAVES OF UNCERTAIN SIGNFICANCE. NO PREVIOUS SEE SCANNED DOWNTIME REPORT
--- NOTE | 2019-11-10 12:32 | ECGEPIP ---
[facility] - ED Test Date: 2019-11-03 Pat Name: PATSY AHUMADA JR Department: Room: - Gender: Male Line Staker: : 1960 Requested By: JUAN MANUEL SALVADOR Order Number: [id number] Reading MD: Juan Manuel Huynh Measurements Intervals [place] Rate: 125 P: 60 DE: 179 QRS: -49 QRSD: 137 T: -5 QT: 415 QTc: 599 Interpretive Statements SINUS TACHYCARDIA RBBB VOLTAGE CRITERIA FOR LVH ABNORMAL ECG PROLONGED Q TC NONSPECIFIC T WAVE CHANGES NO PREVIOUS
[2019-11-10 20:09] LABS: CARDIOLIPIN IGA ANTIBODY <9 APL U/mL (0-11); CARDIOLIPIN IGG ANTIBODY <9 GPL U/mL (0-14); CARDIOLIPIN IGM ANTIBODY 14 MPL U/mL (0-12); PHOSPHOLIPIDS LEVEL 187 mg/dL (150-250)
== END 2019-11-07 15:35 | disposition home or self-care (01) | DRG 197 ==
LOC: EDBD 15:57 → M ED 15:57 → EDBEDREQSVC 17:52 → M ED INP 18:18 → ENRESERV 19:17 → M ICU 19:46 → M PCU 11-05 11:12
PROVIDERS: ADMIT Internal Medicine Nephrology; ATTEND Family Medicine
DX: I82.431 Acute embolism and thrombosis of right popliteal vein (principal); I26.92 Saddle embolus of pulmonary artery without acute cor pulmonale; J96.01 Acute respiratory failure with hypoxia; I50.21 Acute systolic (congestive) heart failure; E87.2 Acidosis; I11.0 Hypertensive heart disease with heart failure; Z68.41 Body mass index [BMI] 40.0-44.9, adult; E66.9 Obesity, unspecified; M54.5 Low back pain; R73.03 Prediabetes; N39.0 Urinary tract infection, site not specified; B96.20 Unspecified Escherichia coli [E. coli] as the cause of diseases classified elsewhere

== ENCOUNTER → 2021-04-10 | Outpatient (REF) | payer OTHER ==
[~2021-04-10] MED LIST: AMLO1TAB25 PO; CARV6.25 PO; DOCU100C16 PO; JANT5TAB PO; LASI40TA9 PO; LISI5TAB11 PO; LOVE0.01 SC; NITR100C2 PO; WARF-60 PO
[2021-04-10 13:45] LABS: BASO # 0.1 10^3/uL (0.0-0.2); BASO % 0.7 % (0.0-1.0); EOS # 0.2 10^3/uL (0.0-0.5); EOS % 3.2 % (0.0-3.0); HEMATOCRIT 51.5 % (42.0-52.0); HEMOGLOBIN 17.9 g/dl (13.5-17.5); LYMPH # 1.7 10^3/uL (1.5-5.0); LYMPH % 23.4 % (24.0-44.0); MEAN CORPUSCULAR HEMOGLOBIN 32.3 pg (27.0-33.0); MEAN CORPUSCULAR HGB CONC 34.8 g/dl (32.0-36.5); MEAN CORPUSCULAR VOLUME 92.8 fl (80.0-96.0); MONO # 0.7 10^3/uL (0.0-0.8); MONO % 10.2 % (2.0-8.0); NEUTROPHILS # 4.5 10^3/uL (1.5-8.5); NEUTROPHILS % 61.8 % (36.0-66.0); PLATELET COUNT, AUTOMATED 299 10^3/uL (150-450); RED BLOOD COUNT 5.55 10^6/uL (4.30-6.10); WHITE BLOOD COUNT 7.2 10^3/uL (4.0-10.0)
[2021-04-10 14:25] LABS: ERYTHROCYTE SEDIMENTATION RATE 6 mm/hr (0-20)
[2021-04-10 14:28] LABS: C REACTIVE PROTEIN QUANTITATIV < 0.30 MG/DL (0.00-0.30); RHEUMATOID FACTOR QUANT < 10.0 IU/ML (<15.0); URIC ACID 4.2 MG/DL (3.5-7.2)
== END ==
LOC: M LABDRWAD 13:25
PROVIDERS: ATTEND Orthopaedic Surgery
DX: M16.12 Unilateral primary osteoarthritis, left hip (principal)

== ENCOUNTER → 2022-07-08 | Outpatient (REF) | LOC: M PLAIMG 14:33 | PROVIDERS: ATTEND Internal Medicine | DX: M54.50 Low back pain, unspecified (principal); M25.552 Pain in left hip; M85.88 Other specified disorders of bone density and structure, other site; M47.896 Other spondylosis, lumbar region; M16.12 Unilateral primary osteoarthritis, left hip ==

== ENCOUNTER → 2024-11-22 | Outpatient (CLI) | payer MEDICARE, MEDICAID | LOC: M PLAIMG 07:48 | PROVIDERS: ATTEND Physician Assistant | DX: J32.0 Chronic maxillary sinusitis (principal) ==